=== PATIENT | female | born 1995 | race African-American/Black ===

== ENCOUNTER 2017-03-19 21:55 | Emergency (ER) | payer MEDICAID ==
[~2017-03-19] VITALS: Ht 167.6 cm; Wt 75.0 kg
[~2017-03-19 21:55] MED LIST: FS300 PO
[2017-03-19 22:12] VITALS: BP 115/77
== END 2017-03-20 01:23 | disposition left against medical advice (07) ==
LOC: ER 21:55
DX: Z53.21 Procedure and treatment not carried out due to patient leaving prior to being seen by health care provider (principal)

== ENCOUNTER 2018-03-05 22:11 | Emergency (ER) | payer MEDICAID ==
[~2018-03-05] VITALS: Ht 167.6 cm; Wt 88.0 kg
[~2018-03-05 22:11] MED LIST changes: +FERR325T23 PO; -FS300 PO
[2018-03-06] MEDS ORDERED: KETOROLAC 60MG/2ML VIAL IM ONE (01:15)
[2018-03-06 01:51] VITALS: BP 127/67
== END 2018-03-06 06:19 | disposition home or self-care (01) ==
LOC: ER 22:11
DX: R51 Headache (principal); E03.9 Hypothyroidism, unspecified; Z91.018 Allergy to other foods
CPT/HCPCS: 81025; 96372; 99283; J1885